=== PATIENT | male | born 1950 | race Caucasian/White ===

== ENCOUNTER 2021-05-01 18:40 | Emergency (ER) | payer MEDICARE ==
[~2021-05-01] VITALS: Ht 182.9 cm; Wt 93.0 kg
--- NOTE | 2021-05-01 18:52 | NUR ---
Patient to ER bed 6 to gown for evaluation. Side rails up.
--- NOTE | 2021-05-01 18:52 | NUR ---
Pt bib ambulance with complaint of near syncope Xtoday. [place] and standing up and feeling light headed. Family assisted him to the ground and called 911. No loss of concioussness or trauma. Pt is AAOX4 speaking full sentences. Pt reports lower sharp abdominal pain 7/10 with N/V. Pt resting in gurney attached to monitor no distress noted.
[2021-05-01 18:54] VITALS: BP_SYST 109
--- NOTE | 2021-05-01 18:57 | NUR ---
ER at bedside examining patient.
--- NOTE | 2021-05-01 18:59 | NUR ---
X-ray at bedside.
--- NOTE | 2021-05-01 19:25 | NUR ---
# 20 gauge angiocath placed to RFA. Use of asceptic technique. Opsite placed over site. Blood return noted. Blood for lab drawn from site. Flushed with 10 cc of normal saline. No evidence of infiltration noted. Patient tolerated well.
--- NOTE | 2021-05-01 19:26 | NUR ---
Blood collected and sent to lab.
--- NOTE | 2021-05-01 19:26 | NUR ---
Care endorsed to Amarilis PRECIADO
[2021-05-01 19:56] LABS: BASOPHILS % (AUTO) 0.5 % (0.0-2.0); EOSINOPHILS # (AUTO) 0.2 K/uL (0.0-0.4); EOSINOPHILS % (AUTO) 2.3 % (0.0-4.0); HEMATOCRIT 39.3 % (36-54); HEMOGLOBIN 13.3 g/dL (14.0-18.0); LYMPHOCYTES # (AUTO) 2.1 K/uL (1.0-5.5); LYMPHOCYTES % (AUTO) 21.6 % (20.5-51.5); MEAN CORPUSCULAR HEMOGLOBIN 30 pg (27-31); MEAN CORPUSCULAR HGB CONC 34 % (32-36); MEAN CORPUSCULAR VOLUME 89 fL (79.0-98.0); MONOCYTES # (AUTO) 0.9 K/uL (0.0-1.0); MONOCYTES % (AUTO) 9.2 % (1.7-9.3); NEUTROPHILS # (AUTO) 6.4 K/uL (1.8-7.7); NEUTROPHILS % (AUTO) 66.4 % (40.0-70.0); PLATELET COUNT (AUTO) 254 K/uL (130-430); RED BLOOD CELL COUNT(AUTO) 4.44 MIL/uL (4.2-6.2); WHITE BLOOD COUNT (AUTO) 9.6 K/uL (4.8-10.8)
[2021-05-01 20:02] LABS: PROTHROMBIN TIME 10.7 SECS (9.5-12.5)
[2021-05-01 20:06] LABS: ACETONE, SERUM NEGATIVE (NEGATIVE)
[2021-05-01 20:07] LABS: ALANINE AMINOTRANSFERASE 27 U/L (12-78); ANION GAP 10 (5-15); ASPARTATE AMINOTRANSFERASE 21 U/L (10-37); CALCIUM 9.3 mg/dL (8.4-11.0); CHLORIDE 105 mmol/L (98-107); CREATININE 1.36 mg/dL (0.55-1.30); GLUCOSE 149 mg/dL (70-99); POTASSIUM 4.5 mmol/L (3.5-5.1); SODIUM SERUM 141 mmol/L (136-145); TOTAL BILIRUBIN 0.4 mg/dL (0.0-1.0); UREA NITROGEN, BLOOD 22 mg/dL (8-21)
--- NOTE | 2021-05-01 20:11 | NUR ---
Patient came back from CT scan.
--- NOTE | 2021-05-01 20:52 | NUR ---
Urine specimen collected and sent to lab.
--- NOTE | 2021-05-01 21:21 | NUR ---
Patient given written and verbal discharge instructions and verbalizes understanding. ER MD discussed with patient the results and treatment provided. Patient in stable condition. ID arm band removed. IV catheter removed intact and dressing applied, no active bleeding. NO Rx given. Patient educated on pain management and to follow up with PMD. Pain Scale 0/10. Opportunity for questions provided and answered.
[2021-05-01 21:22] VITALS: BP_SYST 147
[2021-05-01 21:24] LABS: BILIRUBIN,URINE NEGATIVE (NEGATIVE); BLOOD, URINE NEGATIVE (NEGATIVE); CLARITY/URINE CLEAR (CLEAR); COLOR,URINE YELLOW (YELLOW); GLUCOSE,URINE NEGATIVE (NEGATIVE); KETONES,URINE TRACE (NEGATIVE); LEUKOCYTE ESTERASE ,URINE NEGATIVE (NEGATIVE); NITRITE, URINE NEGATIVE (NEGATIVE); PROTEIN URINE NEGATIVE (NEGATIVE); UROBILINOGEN,URINE 0.2 (0.2-1.0)
== END 2021-05-01 21:21 | disposition home or self-care (01) ==
LOC: SED 18:40
DX: R55 Syncope and collapse (principal); I10 Essential (primary) hypertension; E11.9 Type 2 diabetes mellitus without complications; Z88.1 Allergy status to other antibiotic agents
CPT/HCPCS: 36415; 70450-TC; 71045; 76376; 80053; 81003; 82009; 82550; 83605; 84484; 85025; 85610-TC; 85730-TC; 93005; 99285